=== PATIENT | male | born 1945 | race Caucasian/White ===

== ENCOUNTER 2016-10-20 18:35 | Inpatient (IN) | payer OTHER, BC ==
[~2016-10-20] VITALS: Ht 185.4 cm; Wt 95.3 kg
[2016-10-20 18:38] VITALS: BP_SYST 123
[2016-10-20] MEDS ORDERED: NACL 0.9% 1,000 ML IV SCH (18:50)
[2016-10-20] MEDS ORDERED: ACETAMINOPHEN 500 MG TABLET PO ONE (19:00)
[2016-10-20 19:54] LABS: BILIRUBIN,URINE NEGATIVE (NEGATIVE); BLOOD, URINE 2+ (NEGATIVE); COLOR,URINE AMBER (YELLOW); GLUCOSE,URINE NEGATIVE (NEGATIVE); KETONES,URINE 1+ (NEGATIVE); NITRITE, URINE POSITIVE (NEGATIVE); PH,URINE 5.5 (5.0-8.0); PROTEIN URINE 2+ (NEGATIVE)
[2016-10-20 19:55] LABS: HEMATOCRIT 40.7 % (36-54); HEMOGLOBIN 13.7 g/dL (14.0-18.0); MEAN CORPUSCULAR HEMOGLOBIN 31 pg (27-31); MEAN CORPUSCULAR HGB CONC 34 % (32-36); MEAN CORPUSCULAR VOLUME 93 fL (79.0-98.0); PLATELET COUNT (AUTO) 153 K/uL (130-430); RED BLOOD CELL COUNT(AUTO) 4.38 MIL/uL (4.2-6.2); RED CELL DISTRIBUTION WIDTH 13.4 % (9.0-15.0); WHITE BLOOD COUNT (AUTO) 6.9 K/uL (4.8-10.8)
[2016-10-20] MEDS ORDERED: ASPI81TA2 PO (19:55)
[2016-10-20] MEDS ORDERED: SAW160CA2 PO (19:55)
[2016-10-20] MEDS ORDERED: FLEC50TA2 PO (19:55)
[2016-10-20] MEDS ORDERED: METO25TA6 PO (19:55)
[2016-10-20 19:57] LABS: ANION GAP 10 (5-15); CALCIUM 8.4 mg/dL (8.4-11.0); CHLORIDE 102 mmol/L (98-107); CREATININE 1.05 mg/dL (0.55-1.30); GLUCOSE 172 mg/dL (70-99); POTASSIUM 3.4 mmol/L (3.5-5.1); SODIUM SERUM 133 mmol/L (136-145); UREA NITROGEN, BLOOD 23 mg/dL (8-21)
[2016-10-20 19:59] LABS: INR 1.1 (0.80-1.20); PROTHROMBIN TIME 11.6 SECS (9.5-12.5)
[2016-10-20] MEDS ORDERED: NACL 0.9% 1,000 ML IV ONE (20:00)
[2016-10-20 20:02] LABS: ALANINE AMINOTRANSFERASE 29 U/L (12-78); ALBUMIN 3.7 g/dL (3.4-4.8); ASPARTATE AMINOTRANSFERASE 27 U/L (10-37); TOTAL BILIRUBIN 2.5 mg/dL (0.0-1.0); TOTAL PROTEIN, SERUM 7.3 g/dL (6.4-8.3)
[2016-10-20 20:02] LABS: CLARITY/URINE HAZY (CLEAR); LEUKOCYTE ESTERASE ,URINE 2+ (NEGATIVE)
[2016-10-20 20:03] LABS: RBC,URINE 0-3 /HPF (0-3)
[2016-10-20 20:04] LABS: BACTERIA,URINE MODERATE /HPF (None Seen); MUCUS,URINE 1+ /LPF (None Seen); WBC,URINE 20-50 /HPF (0-3)
[2016-10-20 20:11] LABS: BAND % (MANUAL) 6 % (0-6); LYMPHOCYTES % (MANUAL) 2 % (20-46)
[2016-10-20 20:12] LABS: BASOPHILS % (MANUAL) 0 % (0-2); EOSINOPHILS % (MANUAL) 0 % (0-7); MONOCYTES % (MANUAL) 0 % (0-11)
[2016-10-20] MEDS ORDERED: LEVOFLOXACIN 500 MG/D5W 100 ML IV ONE (20:45)
[2016-10-20] MEDS ORDERED: ASPIRIN 81 MG TAB.CHEW PO ONE ×2 (20:45→23:30)
[2016-10-20] MEDS ORDERED: ONDANSETRON HCL 4 MG/2 ML VIAL IVP PRN (21:30)
[2016-10-20] MEDS ORDERED: ACETAMINOPHEN 325 MG TABLET PO PRN (21:30)
[2016-10-20 21:38] VITALS: BP_SYST 108
[2016-10-20] MEDS ORDERED: ACETAMINOPHEN 500 MG TABLET PO PRN (22:01)
[2016-10-20] MEDS ORDERED: FLECAINIDE ACETATE 50 MG TABLET (TAMBOCOR) PO PRN (23:15)
[2016-10-20] MEDS ORDERED: METOPROLOL TARTRATE 25 MG TABLET PO ONE (23:30)
[2016-10-21 00:23] VITALS: BP_SYST 93
[2016-10-21 04:00] VITALS: BP_SYST 99
[2016-10-21 08:09] VITALS: BP_SYST 121
[2016-10-21] MEDS ORDERED: METOPROLOL TARTRATE 25 MG TABLET PO SCH (09:00)
[2016-10-21] MEDS ORDERED: ASPIRIN 81 MG TAB.CHEW PO SCH (09:00)
[2016-10-21 12:00] VITALS: BP_SYST 117
[2016-10-21 15:03] VITALS: BP_SYST 117
[2016-10-21] MEDS ORDERED: LEVO500T20 PO (16:22)
[2016-10-21] MEDS ORDERED: LEVOFLOXACIN 500 MG/D5W 100 ML IV SCH (21:30)
== END 2016-10-21 15:45 | disposition home or self-care (01) | DRG 872 ==
LOC: SED 18:35 → OBSVTOIN 21:22 → STU 21:22
PROVIDERS: ADMIT Family Medicine; ATTEND Family Medicine
DX: A41.9 Sepsis, unspecified organism (principal); G45.9 Transient cerebral ischemic attack, unspecified; N39.0 Urinary tract infection, site not specified; I10 Essential (primary) hypertension; I34.1 Nonrheumatic mitral (valve) prolapse; I48.0 Paroxysmal atrial fibrillation; Z72.0 Tobacco use; Z88.0 Allergy status to penicillin; Z79.82 Long term (current) use of aspirin; Z79.899 Other long term (current) drug therapy; Z82.49 Family history of ischemic heart disease and other diseases of the circulatory system
CPT/HCPCS: 36415; 71010; 80053; 81000-TC; 83605; 84484; 85007; 85027; 85610-TC; 85730-TC; 87040-TC; 87086; 87186-TC; 93005; 93306; 96361; 96365; 99285; J1956; J7030